=== PATIENT | female | born 1990 | race Hispanic/Latino ===

== ENCOUNTER 2022-10-14 01:05 | Inpatient (IN) | payer MEDICAID, OTHER ==
[2022-10-14] MEDS ORDERED: hydrALAZINE 20 MG/ML VIAL SLOW IVP PRN ×3 (02:06→12:36)
[2022-10-14] MEDS ORDERED: Lactated Ringer's 1,000 ML IV SCH (02:30)
[2022-10-14] MEDS: Acetaminophen 500 MG TAB PO PRN ×2 (04:31→22:14)
[2022-10-14] MEDS: Lactated Ringer's 1,000 ML IV SCH ×5 (04:32→22:31)
[2022-10-14] MEDS ORDERED: Famotidine/PF 20 mg/2ml Vial ONE (06:17)
[2022-10-14] MEDS ORDERED: CEFAZOLIN 2 GM VIAL ONE (06:18)
[2022-10-14] MEDS ORDERED: CEFAZOLIN 1 GM VIAL ONE (06:18)
[2022-10-14] MEDS ORDERED: Promethazine HCl 25 MG/ML VIAL IM PRN ×2 (06:19→07:01)
[2022-10-14] MEDS ORDERED: Butorphanol Tartrate 1 MG/ML VIAL SLOW IVP PRN (06:19)
[2022-10-14] MEDS ORDERED: Ondansetron PF 4 MG/2 ML Vial IVP PRN ×2 (06:19→07:01)
[2022-10-14] MEDS ORDERED: Famotidine/PF 20 mg/2ml Vial SLOW IVP PRN (06:24)
[2022-10-14] MEDS ORDERED: Bicitra 30 ML UDCUP PO PRN (06:24)
[2022-10-14] MEDS ORDERED: CEFAZOLIN 2 GM in Sodium Chloride 0.9% 100 ML IVPB SCH (06:30)
[2022-10-14] MEDS ORDERED: Meperidine HCl/PF 25 MG/ML VIAL SLOW IVP PRN (07:01)
[2022-10-14] MEDS ORDERED: Moisturizing Cream (Eucerin) 113 GM JAR TOP PRN (07:01)
[2022-10-14] MEDS ORDERED: Promethazine HCl 25 MG SUPP PR PRN (07:01)
[2022-10-14] MEDS ORDERED: diphenhydrAMINE 50 MG/ML VIAL IVP PRN (07:01)
[2022-10-14] MEDS ORDERED: Naloxone HCl 0.4 mg/ml Vial IVP PRN ×2 (07:01)
[2022-10-14] MEDS ORDERED: HYDROmorphone 2 MG/ML VIAL SLOW IVP PRN (07:01)
[2022-10-14] MEDS ORDERED: Ondansetron HCl/PF 4 MG/2 ML Vial IVP PRN (07:01)
[2022-10-14] MEDS ORDERED: Fentanyl 100 MCG/2 ML VIAL SLOW IVP PRN (07:01)
[2022-10-14] MEDS ORDERED: Naloxone HCl 0.4 mg/ml Vial IV PRN (07:01)
[2022-10-14 07:02] LABS: Hemoglobin 12.3 g/dL (12.0-15.5); Mean Corpuscular HGB CONC 33.5 g/dL (32.0-36.0); Mean Corpuscular Volume 86.6 fl (81.6-98.3); Mean Platelet Volume 9.4 fl (7.4-10.4); Platelet Count 293 10x3/uL (150-450); RBC Distribution Width 13.4 % (11.5-14.5); Red Blood Cell (RBC) Count 4.24 10x6/uL (3.90-5.03); White Blood Cell (WBC) Count 9.1 10x3/uL (3.5-10.5)
[2022-10-14] MEDS ORDERED: Fentanyl 100 MCG/2 ML VIAL ONE (07:04)
[2022-10-14] MEDS ORDERED: Dexamethasone 4 mg/ml Vial ONE (07:04)
[2022-10-14] MEDS ORDERED: Ondansetron PF 4 MG/2 ML Vial ONE (07:04)
[2022-10-14] MEDS ORDERED: Morphine PF 10 MG/10 ML VIAL ONE (07:04)
[2022-10-14] MEDS ORDERED: Phenylephrine 10 MG/ML VIAL ONE (07:04)
[2022-10-14] MEDS ORDERED: Oxytocin 10 UNITS/ML VIAL ONE ×2 (07:05→09:15)
[2022-10-14] MEDS ORDERED: Ketorolac Tromethamine 30 MG/ML VIAL IVP SCH (07:15)
[2022-10-14] MEDS ORDERED: Communication Order-Pharmacy FS SCH (07:15)
[2022-10-14 07:35] LABS: HBSAg Index 0.14 S/CO (0-0.99); Hep B Surf Ag Non-Reactive S/CO (NonReactive); Syphilis Antibody Nonreactive (Nonreactive); Syphilis Antibody Index 0.28 S/CO (<1.00 Non-Reactive)
[2022-10-14 07:40] VITALS: BMI 33.7
[2022-10-14] MEDS ORDERED: Methylergonovine 0.2 MG/ML VIAL IM PRN (07:53)
[2022-10-14] MEDS ORDERED: Misoprostol 200 MCG TAB PR PRN (07:53)
[2022-10-14] MEDS ORDERED: Carboprost 250 MCG/ML AMP IM PRN (07:53)
[2022-10-14] MEDS ORDERED: Tranexamic Acid 1,000 MG/10 ML VIAL IVP PRN (08:04)
[2022-10-14] MEDS ORDERED: Carboprost 250 MCG/ML AMP ONE (09:15)
[2022-10-14] MEDS ORDERED: Midazolam HCl 2 mg/2 ml Vial ONE (09:21)
[2022-10-14] MEDS ORDERED: Diphenoxylate HCl/Atropine Tablet PO PRN (10:14)
[2022-10-14 10:58] LABS: SARS-CoV-2 NAA Rapid Test Not Detected (NotDetected)
[2022-10-14] MEDS: Ketorolac Tromethamine 30 MG/ML VIAL IVP PRN ×2 (11:57→17:57)
[2022-10-14] MEDS ORDERED: Bisacodyl 10 MG SUPP PR PRN (12:36)
[2022-10-14] MEDS ORDERED: diphenhydrAMINE 25 MG CAP PO PRN (12:36)
[2022-10-14] MEDS ORDERED: Boostrix 0.5 ML (Tdap) VIAL (>/=7 yrs of age) IM ONE (12:36)
[2022-10-14] MEDS: Simethicone Chewable 80 MG TAB PO PRN (22:34)
[2022-10-15] MEDS: Ketorolac Tromethamine 30 MG/ML VIAL IVP PRN ×2 (00:20→06:06)
[2022-10-15 05:18] LABS: Hemoglobin 8.6 g/dL (12.0-15.5); Mean Corpuscular Hemoglobin 28.5 pg (27.0-33.0); Mean Corpuscular Volume 86.4 fl (81.6-98.3); Mean Platelet Volume 8.9 fl (7.4-10.4); Platelet Count 201 10x3/uL (150-450); RBC Distribution Width 13.2 % (11.5-14.5); Red Blood Cell (RBC) Count 3.02 10x6/uL (3.90-5.03); White Blood Cell (WBC) Count 10.5 10x3/uL (3.5-10.5)
[2022-10-15] MEDS: Simethicone Chewable 80 MG TAB PO PRN ×2 (06:05→13:46)
[2022-10-15] MEDS ORDERED: HYDROcodone/Acetaminophen 5/325 mg Tablet PO PRN ×3 (07:36→13:26)
[2022-10-15] MEDS: Docusate 100 MG CAP PO PRN ×2 (08:10→20:23)
[2022-10-15] MEDS ORDERED: Acetaminophen 500 MG TAB PO PRN (08:33)
[2022-10-15] MEDS: Lactated Ringer's 1,000 ML IV SCH ×3 (12:15→22:13)
[2022-10-15] MEDS: Ibuprofen 600 MG TAB PO SCH ×2 (13:49→18:42)
[2022-10-15] MEDS ORDERED: Ibuprofen 800 MG TAB PO SCH (14:00)
[2022-10-15] MEDS ORDERED: HYDROcodone/Acetaminophen 10/325 mg Tablet PO SCH (20:15)
[2022-10-16] MEDS: Ibuprofen 800 MG TAB PO SCH ×3 (00:29→13:45)
[2022-10-16] MEDS: HYDROcodone/Acetaminophen 5/325 mg Tablet PO PRN ×2 (02:20→08:32)
[2022-10-16 04:54] LABS: #Eosinphils 0.1 10x3/uL (0.0-0.5); #Monocytes 0.6 10x3/uL (0.0-1.1); #Neutrophils 7.7 10x3/uL (1.5-8.4); %Basophils 0.3 % (0.0-2.0); %Eosinophils 0.9 % (0.0-6.0); %Lymphocytes 19.9 % (18.0-47.0); %Neutrophils 72.4 % (40.0-75.0); Mean Corpuscular Hemoglobin 28.7 pg (27.0-33.0); Mean Corpuscular Volume 86.9 fl (81.6-98.3); Platelet Count 241 10x3/uL (150-450); RBC Distribution Width 13.4 % (11.5-14.5); Red Blood Cell (RBC) Count 3.14 10x6/uL (3.90-5.03); White Blood Cell (WBC) Count 10.6 10x3/uL (3.5-10.5)
[2022-10-16] MEDS: Simethicone Chewable 80 MG TAB PO PRN (06:32)
[2022-10-16 07:48] VITALS: BP 110/72; TEMP 97.9
[2022-10-16] MEDS: Lactated Ringer's 1,000 ML IV SCH ×2 (08:05→08:06)
[2022-10-16] MEDS: Docusate 100 MG CAP PO PRN (08:32)
[2022-10-16] MEDS ORDERED: Docusate 100 MG CAP PO SCH ×2 (10:00→21:00)
== END 2022-10-16 16:25 | disposition home or self-care (01) | DRG 788 ==
LOC: CSHLD/OP 01:05 → CSHLD 06:21 → CSHPP 12:08
PROVIDERS: ADMIT Student in an Organized Health Care Education/Training Program; ATTEND Student in an Organized Health Care Education/Training Program
PROC: 10D00Z1 Extraction of Products of Conception, Low, Open Approach (ICD-10-PCS; principal; 2022-10-14)
DX: O34.211 Maternal care for low transverse scar from previous cesarean delivery (principal); O99.824 Streptococcus B carrier state complicating childbirth; Z3A.38 38 weeks gestation of pregnancy; Z37.0 Single live birth; Z79.899 Other long term (current) drug therapy; N99.4 Postprocedural pelvic peritoneal adhesions; O99.892 Other specified diseases and conditions complicating childbirth; O69.81X0 Labor and delivery complicated by cord around neck, without compression, not applicable or unspecified; Z20.822 Contact with and (suspected) exposure to COVID-19
CPT/HCPCS: 36415; 51702; 85025; 85027; 86780; 86850; 86900; 86901; 87340; 99285; J0595; J0690; J1100; J1200; J1885; J2250; J2274; J2370; J2405; J2590; J3010; J3490; J7120; S0028; U0002

== ENCOUNTER 2022-10-20 00:36 | Emergency (ER) | payer OTHER ==
[2022-10-20] MEDS ORDERED: Mineral Oil ENEMA PR SCH (01:30)
[2022-10-20] MEDS ORDERED: Ketorolac Tromethamine 30 MG/ML VIAL ONE (01:46)
== END 2022-10-20 02:50 | disposition home or self-care (01) ==
LOC: CSHERS 00:36
DX: K59.00 Constipation, unspecified (principal); I10 Essential (primary) hypertension; F17.210 Nicotine dependence, cigarettes, uncomplicated
CPT/HCPCS: 96374; J1885